=== PATIENT | female | born 1960 | race Caucasian/White ===

== ENCOUNTER 2017-08-24 10:39 | Day surgery (SDC) | payer BC, OTHER ==
[2017-08-22 17:53] VITALS: BMI 28.1
[~2017-08-24 10:39] MED LIST: LACTATED RINGERS 1,000 ML IV SCH
[2017-08-24 11:13] VITALS: TEMP 97.7
[2017-08-24] MEDS ORDERED: PROPOFOL 10 MG/ML 20 ML VIAL IV ONE (11:35)
--- NOTE | 2017-08-24 12:08 | P.PCN ---
Date of Procedure: 08/24/17 Procedure(s) Performed: BRIEF HISTORY: Patient is a 56-year-old pleasant white female, scheduled for an elective colonoscopy as a part of screening for colorectal neoplasia. PROCEDURE PERFORMED: Colonoscopy. PREOPERATIVE DIAGNOSIS: Sreening for colon cancer. IV sedation per Anesthesia. PROCEDURE: After informed consent was obtained, the patient, was brought into the endoscopy unit. IV sedation was administered by Anesthesia under continuous monitoring. Digital rectal examination was normal. Initially the Olympus CF- 160 flexible video colonoscope was then inserted in the rectum, gradually advanced into the cecum without any difficulty. Careful examination was performed as the scope was gradually being withdrawn. Ileocecal valve and the appendiceal orifice were visualized and appeared normal. Prep was excellent. Mucosa of the cecum, ascending colon, transverse colon, descending colon, sigmoid colon, and rectum appeared normal. Retroflexion was performed in the rectum and no lesions were seen. The patient tolerated the procedure well. IMPRESSION: Normal-appearing colon from rectum to cecum with no evidence of colorectal neoplasia. RECOMMENDATIONS: Findings of this examination were discussed with the patient as well as a family. She was advised to have a repeat screening colonoscopy in 10 years..
[2017-08-24 12:10] VITALS: RESP 18
[2017-08-24 12:23] VITALS: BP 124/80; PULSE 54
== END 2017-08-24 12:43 | disposition home or self-care (01) ==
LOC: ORWHC2ENDO 10:39
PROVIDERS: ATTEND Internal Medicine Gastroenterology
DX: Z12.11 Encounter for screening for malignant neoplasm of colon (principal); K21.9 Gastro-esophageal reflux disease without esophagitis; R41.3 Other amnesia; Z79.82 Long term (current) use of aspirin; Z79.899 Other long term (current) drug therapy
CPT/HCPCS: J2704; G0121

== ENCOUNTER → 2021-11-17 | Outpatient (CLI) | payer BC ==
--- NOTE | 2021-11-17 12:16 | CA ---
Exercise Stress Test Report Name: Luzmaria Khan Exam Date: 11/17/2021 10:57 Exam Location: [place] Stress Ht (in): 70 Wt (lb): 204 BSA: 2.10 Ordering Phys: Ward Casey MD Referring Phys: Lorraine Saha PAC Technologist: Tone Rivera Age: 61 Gender: F : 1960 Procedure CPT: Indications: R0789 OTHER CHEST PAIN ICD-10 Codes: Patient History: Cheat Pain Medications: BUPROPION,,,,,, VENLAFAXINE,,,,,, CLONIDINE,,,,,, ALIVE,,,,,, CELECOXIB,,,,,, OMEPRAZOLE,,,,, Meds past 24 hrs: Pretest Chest Pain: STRESS TEST Soy Protocol Exercise Duration (min:sec): 06:[address] Depressions (mm): Angina Score: Johnson Score: Resting HR (bpm): 76 Peak HR (bpm): 176 Resting BP (mmHg): 138 / 85 Peak BP (mmHg): 183 / 92 MPHR: 159 Target HR: 135 % MPHR: 111 METS: 7.1 Total Dose: Peak Dose: Atropine: Double Product: 59788 BP Response: Stress Termination: Reached target heart rate Stress Symptoms: No chest pain or symptoms Stress Summary: ECG ANALYSIS Resting ECG: Stress ECG: CONCLUSIONS Patient underwent exercise stress EKG with a Soy protocol treadmill stress test. Patient exercised into Stage 2 for a total of 6 minutes reaching a total of 7.1 METS. Patient's maximum heart rate was 176 which represented 110 % age-predicted maximum heart rate. Stress EKG findings: At baseline patient's EKG showed normal sinus rhythm, normal axis, incomplete right bundle-branch block and no significant ST or T wave abnormalities. At peak exercise, EKG showed no significant change. Conclusions: 1. Normal EKG response to exercise without evidence of inducible ischemia. 2. Fair exercise capacity. Dr. Jerry Vanegas DO (Electronically Signed) Final Date: 17 November 2021 12:15
== END | disposition home or self-care (01) ==
LOC: RADNMMAIN 10:32
PROVIDERS: ATTEND Family Medicine
DX: R07.89 Other chest pain (principal)
CPT/HCPCS: 93017

== ENCOUNTER 2022-07-28 11:19 | Day surgery (SDC) | payer BC ==
[2022-07-27 08:53] VITALS: BMI 28.7
[~2022-07-28 11:19] MED LIST changes: -LACTATED RINGERS 1,000 ML IV SCH; +LIDOCAINE 1% (10MG/ML) FOR IV START INTRADERMA PRN; +ONDANSETRON 4 MG/2 ML VIAL IVP PRN
[2022-07-28 12:39] VITALS: RESP 16; TEMP 97.7
[2022-07-28] MEDS: LACTATED RINGERS 1,000 ML IV SCH ×2 (12:39→13:25)
[2022-07-28] MEDS ORDERED: LIDOCAINE 2% INJ 20 MG/ML (2 ML VIAL) ONE (13:26)
[2022-07-28] MEDS ORDERED: PROPOFOL 10 MG/ML 20 ML VIAL IV ONE (13:26)
--- NOTE | 2022-07-28 13:45 | P.PCN ---
Date of Procedure: 07/28/22 Procedure(s) Performed: BRIEF HISTORY: Patient is a 61-year-old pleasant white female scheduled for an elective colonoscopy as a part of evaluation of Hemoccult-positive stool PROCEDURE PERFORMED: Colonoscopy with snare polypectomy. PREOPERATIVE DIAGNOSIS: Hemoccult-positive stool. IV sedation per Anesthesia. PROCEDURE: After informed consent was obtained, the patient, was brought into the endoscopy unit. IV sedation was administered by Anesthesia under continuous monitoring. Digital rectal examination was normal. Initially the Olympus CF-160 flexible video colonoscope was then inserted in the rectum, gradually advanced into the cecum without any difficulty. Careful examination was performed as the scope was gradually being withdrawn. Ileocecal valve and the appendiceal orifice were visualized and appeared normal. Prep was excellent. Mucosa of the cecum, ascending colon, transverse colon, appeared normal. The descending colon there was a 1 cm polyp removed by snare polypectomy. Scattered left sided diverticulosis seen. Rest of the descending colon, sigmoid colon, and rectum appeared normal. In the proximal rectum at 18 cm from anal was there was a 1.5 cm polyp removed by snare polypectomy. Retroflexion was performed in the rectum and no lesions were seen. The patient tolerated the procedure well. IMPRESSION: 1 cm descending colon polyp status post polypectomy 1.5 cm proximal rectal polyp status post polypectomy Scattered sigmoid diverticulosis RECOMMENDATIONS: Findings of this examination were discussed with the patient well as her family. She was advised to follow with the biopsy results. If the biopsy reveals adenoma she can have a repeat colonoscopy in 3 years..
[2022-07-28 14:06] VITALS: BP 124/67; PULSE 74
== END 2022-07-28 14:43 | disposition home or self-care (01) ==
LOC: ORWHC2ENDO 11:19
PROVIDERS: ATTEND Internal Medicine Gastroenterology
DX: D12.4 Benign neoplasm of descending colon (principal); D12.8 Benign neoplasm of rectum; K57.30 Diverticulosis of large intestine without perforation or abscess without bleeding; M19.90 Unspecified osteoarthritis, unspecified site; K21.9 Gastro-esophageal reflux disease without esophagitis; Z79.899 Other long term (current) drug therapy
CPT/HCPCS: 88305; 45385; J2704; J2001

== ENCOUNTER → 2024-09-17 | Outpatient (CLI) | payer OTHER ==
--- NOTE | 2024-09-17 12:12 | FL ---
EXAMINATION TYPE: FL barium swallow DATE OF EXAM: 09/17/2024 11:12 AM COMPARISON: None CLINICAL INDICATION:Female, 63 years old with history of R1319 ESOPHAGEAL DYSPHAGIA; [facility], TECHNIQUE: The procedure was explained and patient history elicited. All patient questions were ans wered prior to start of procedure. Multiple spot fluoroscopic images of the esophagus were obtained a fter the oral ingestion of effervescent crystals and liquid barium as the contrast agent. DAP: NOT REPORTED [id number] FINDINGS: The esophagus demonstrates normal primary and secondary peristalsis. The esophageal mucosa is smooth without evidence of focal stricture, ulceration, or abnormal outpouching. No gastroesophageal reflu x disease was identified IMPRESSION: 1. Normal esophagram. [facility], , 09/17/2024 12:10 PM
--- NOTE | 2024-09-18 07:39 | MM ---
Reason for Exam: Screening (asymptomatic). Last mammogram was performed 3 year(s) and 0 month(s) ago. Patient History: Menarche at age 18. First Full-Term at age 21. Hysterectomy at age 50. Postmenopausal. MG pre op needle loc LT - 2 on the Left side. MG pre op needle loc LT - 2 on the Left side. Risk Values: Kimberley 5 year model risk: 1.9%. NCI Lifetime model risk: 8.1%. Prior Study Comparison: 08/17/2017 Bilateral Screening Mammogram, [facility] . 09/27/2021 Bilateral Screening Mammogram, [facility] . Tissue Density: The breasts are almost entirely fatty. Findings: Analyzed By CAD. Right breast: There is no suspicious group of microcalcifications or new suspicious mass. Left breast: There is no suspicious group of microcalcifications or new suspicious mass. Overall Assessment: Negative, BI-RAD 1 Management: Screening Mammogram of both breasts in [address] [facility] will attempt to contact patient to return for supplemental views and ultrasound if indicated. Patient should continue monthly self-breast exams. A clinical breast exam by your physician is recommended on an annual basis. This exam should not preclude additional follow-up of suspicious palpable abnormalities. Note on Kimberley scores and lifetime risk: 1. A Kimberley score greater than 3% is considered moderate risk. If this is the case, consider specialist referral to assess eligibility for a risk reducing agent. 2. If overall lifetime risk for the development of breast cancer is 20% or higher, the patient may qualify for future screening with alternating mammogram and breast MRI. [facility], , 09/18/2024 7:37 AM. Electronically signed and approved by: Gui Waterman DO
== END | disposition home or self-care (01) ==
LOC: RADMAMWWP 10:11
PROVIDERS: ATTEND Family Medicine
DX: Z12.31 Encounter for screening mammogram for malignant neoplasm of breast (principal); R92.313 Mammographic fatty tissue density, bilateral breasts; R13.19 Other dysphagia; Z78.0 Asymptomatic menopausal state
CPT/HCPCS: 74220; 77063; 77067